=== PATIENT | female | born 1990 | race Caucasian/White ===

== ENCOUNTER 2018-01-25 09:39 | Emergency (ER) | payer OTHER ==
--- NOTE | 2018-01-25 12:00 | EDPHY ---
H & P Stated Complaint: tachycardia Source: Patient Exam Limitations: No limitations - Personal History LMP (Females 10-55): 1-7 Days Ago Current Tetanus/Diphtheria Vaccine: Yes Current Tetanus Diphtheria and Acellular Pertussis (TDAP): Yes - Medical/Surgical History Hx Asthma: No Hx Chronic Respiratory Disease: No Hx Diabetes: No Hx Cardiac Disease: No Hx Renal Disease: No Hx Cirrhosis: No Hx Alcoholism: No Hx HIV/AIDS: No Hx Splenectomy or Spleen Trauma: No Other PMH: denies - Social History Smoking Status: Never smoked Time Seen by Provider: 01/25/18 11:59 HPI/ROS: HPI: This is a 27-year-old female who presents with Chief Complaint: Tachycardia Location: Heart Quality: Racing Duration: Since Wednesday Signs and Symptoms: no shortness of breath at rest, no shortness of breath on exertion, no cough, no chest pain, no palpitations, no lower extremity edema, no wheezing, no orthopnea, no paroxysmal nocturnal dyspnea, no fever, no injury/ trauma, no hemoptysis, no carpal pedal spasms Timing: Acute, intermittent episodes Severity: Moderate Context: Patient reports that she traveled to [facility] over the weekend and returned on Wednesday. She reports that the day after arriving at the wedding and flying on a plane she started to feel like her heart was racing, dizzy and short of breath. Symptoms were worse at night. She drinks an average of 4 drinks of caffeine daily. Denies any calf pain or swelling. Denies shortness of breath, fever, chest pain. Has a Nexplanon. Nonsmoker. Modifying Factors: None Comment: ROS: A comprehensive 10 system review of systems is otherwise negative aside from elements mentioned in the history of present illness. MEDICAL/SURGICAL/SOCIAL HISTORY: Medical history: Generally healthy. Does not take any regular medications. Surgical history: Denies Social history: Employed. CONSTITUTIONAL: Polite and cooperative, slightly anxious adult white female, awake and alert, no obvious distress HEENT: Atraumatic and normocephalic, PERRL, EOMI. Nares patent; no rhinorrhea; no nasal mucosal edema. Tympanic membranes clear. Oropharynx clear, no exudate and moist pink mucosa. Airway patent. No lymphadenopathy. No meningismus. Cardiovascular: Normal S1/S2, tachycardia, regular rhythm, without murmur rub or gallop. PULMONARY/CHEST: Symmetrical and nontender. Clear to auscultation bilaterally. Good air movement. No accessory muscle usage. ABDOMEN: Soft, nondistended, nontender, no rebound, no guarding, no peritoneal signs, no masses or organomegaly. No CVAT. EXTREMITIES: 2/2 pulses, strength 5/5, no deformities, no clubbing, no cyanosis or edema. Negative calf pain. No Palpable cords in lower extremities. NEUROLOGICAL: no focal neuro deficits. GCS 15. SKIN: Warm and dry, no erythema. no rash. Good capillary refill. (Sara Ulloa) Constitutional: Initial Vital Signs Heart Rate 99 01/25/18 09:59 Respiratory Rate 16 01/25/18 09:59 Blood Pressure 149/96 H 01/25/18 09:59 O2 Sat (%) 99 01/25/18 09:59 O2 Delivery Mode Room Air Allergies/Adverse Reactions: No Known Allergies Allergy (Unverified 01/25/18 09:59) Home Medications: Medication Instructions Recorded Bcp 01/25/18 Medical Decision Making - Diagnostics EKG Interpretation: EKG interpreted by me shows normal sinus rhythm with normal interval and axis. QRS is normal there is no significant ST elevation or depression. Borderline T- wave changes leads V2 and V3. No ectopy. Rate is 92 (Shahram Nunez) ED Course/Re-evaluation: Vital signs reviewed and show heart rate in the upper 90s low 100. No hypoxia, respiratory distress. EKG, laboratory studies, IV fluids, IV medications ordered EKG attending read shows normal sinus rhythm with a rate of 92 beats per minute. No acute ischemic changes, no arrhythmias, no WPW. Given 1 L normal saline and IV Ativan 1 mg. 1215: Notified by tech that troponin is 0.00 1233: Reviewed labs. No signs of leukocytosis/anemia/platelet dysfunction/EVERARDO/ electrolyte imbalance/VTE//thyroid disease. Vital signs improved at discharge. Resolution of tachycardia. Given referral to Cardiology to determine if candidate for Holter monitor. This patient was seen under the supervision of my secondary supervising physician. I evaluated care for this patient independently. Discussed this patient with Dr. Nunez. (Sara Ulloa) I did not see this patient while she was in the emergency department. However her care was discussed with the PA while the patient was in the department. I agree with treatment plan and management (Shahram Nunez) Differential Diagnosis: Palpitation differential includes but is not limited to anxiety, dehydration, anemia, pulmonary embolism, arrhythmias, pericardial effusion. (Sara Ulloa) - Data Points Laboratory Results: Laboratory Results 01/25/18 11:57 01/25/18 11:57 01/25/18 01/25/18 01/25/18 12:02 11:57 11:57 WBC RBC Hgb Hct MCV MCH MCHC RDW Plt Count MPV Neut % (Auto) Lymph % (Auto) [place] % (Auto) Eos % (Auto) Baso % (Auto) Nucleat RBC Rel Count Absolute Neuts (auto) Absolute Lymphs (auto) Absolute Monos (auto) Absolute Eos (auto) Absolute Basos (auto) Absolute Nucleated RBC Immature Gran % Immature Gran # D-Dimer Sodium 141 mEq/L mEq/L (135-145) Potassium 3.8 mEq/L mEq/L (3.3-5.0) Chloride 106 mEq/L mEq/L (97-110) Carbon Dioxide 23 mEq/l mEq/l (22-31) Anion Gap 12 mEq/L mEq/L (6-14) BUN 7 mg/dL mg/dL (7-23) Creatinine 0.6 mg/dL mg/dL (0.6-1.0) Estimated GFR > 60 Glucose 106 mg/dL H mg/dL (70-100) Calcium 10.1 mg/dL mg/dL (8.5-10.4) POC Troponin I 0.00 ng/mL ng/mL (0.00-0.08) TSH 1.520 uIU/mL uIU/mL (0.465-4.680) Beta HCG, Qual NEGATIVE 01/25/18 01/25/18 11:57 11:57 WBC 6.20 10^3/uL 10^3/uL (3.80-9.50) RBC 4.93 10^6/uL 10^6/uL (4.18-5.33) Hgb 15.3 g/dL g/dL (12.6-16.3) Hct 42.9 % % (38.0-47.0) MCV 87.0 fL fL (81.5-99.8) MCH 31.0 pg pg (27.9-34.1) MCHC 35.7 g/dL g/dL (32.4-36.7) RDW 11.4 % L % (11.5-15.2) Plt Count 262 10^3/uL 10^3/uL (150-400) MPV 9.9 fL fL (8.7-11.7) Neut % (Auto) 74.9 % H % (39.3-74.2) Lymph % (Auto) 18.9 % % (15.0-45.0) [place] % (Auto) 5.3 % % (4.5-13.0) Eos % (Auto) 0.2 % L % (0.6-7.6) Baso % (Auto) 0.5 % % (0.3-1.7) Nucleat RBC Rel Count 0.0 % % (0.0-0.2) Absolute Neuts (auto) 4.65 10^3/uL 10^3/uL (1.70-6.50) Absolute Lymphs (auto) 1.17 10^3/uL 10^3/uL (1.00-3.00) Absolute Monos (auto) 0.33 10^3/uL 10^3/uL (0.30-0.80) Absolute Eos (auto) 0.01 10^3/uL L 10^3/uL (0.03-0.40) Absolute Basos (auto) 0.03 10^3/uL 10^3/uL (0.02-0.10) Absolute Nucleated RBC 0.00 10^3/uL 10^3/uL (0-0.01) Immature Gran % 0.2 % % (0.0-1.1) Immature Gran # 0.01 10^3/uL 10^3/uL (0.00-0.10) D-Dimer 0.32 ug/mLFEU ug/mLFEU (0.00-0.50) Sodium Potassium Chloride Carbon Dioxide Anion Gap BUN Creatinine Estimated GFR Glucose Calcium POC Troponin I TSH Beta HCG, Qual Medications Given: Discontinued Medications Sodium Chloride (Ns) 1,000 mls @ 0 mls/hr IV EDNOW ONE; Wide Open PRN Reason: Protocol Stop: 01/25/18 12:12 Last Admin: 01/25/18 12:19 Dose: 1,000 mls Lorazepam (Ativan Injection) 1 mg IVP EDNOW ONE Stop: 01/25/18 12:12 Last Admin: 01/25/18 12:19 Dose: 1 mg Point of Care Test Results: Chemistry 01/25/18 12:02 POC Troponin I 0.00 ng/mL ng/mL (0.00-0.08) Departure - Departure Disposition: Home, Routine, Self-Care Clinical Impression: Heart palpitations, Sinus tachycardia Condition: Good Instructions: Heart Palpitations (ED), Holter Monitoring (ED), Tachycardia (ED) Additional Instructions: Consume a minimum of 8-10 glasses of water or electrolyte fluid replacement drinks that include Gatorade, Powerade, Pedialyte. Refrain from eating or drinking any caffeine. Follow-up with Cardiology in the next 7-10 days to discuss tachycardia and palpitations and determine if Holter monitoring is needed. Referrals: Rose Cano MD [Medical Doctor] - As per Instructions Stand Alone Forms: Work Excuse
[2018-01-25 12:05] LABS: PLATELET COUNT 262 10^3/uL (150-400)
[2018-01-25] MEDS ORDERED: LORazepam 2 MG/ML INJ IVP ONE (12:11)
[2018-01-25] MEDS ORDERED: NS 1,000 ML IV ONE (12:11)
[2018-01-25 12:58] VITALS: BP 129/86
--- NOTE | 2018-01-25 14:02 | CPEKG ---
Test Reason : OPEN Blood Pressure : / mmHG Vent. Rate : 092 BPM Atrial Rate : 091 BPM P-R Int : 170 ms QRS Dur : 089 ms QT Int : 363 ms P-R-T Axes : 081 026 035 degrees QTc Int : 450 ms Sinus rhythm Borderline T abnormalities, anterior leads Confirmed by Shahram Nunez ([id number]) on 01/25/2018 2:02:12 PM Referred By: Confirmed By:Shahram Nunez
== END 2018-01-25 13:12 | disposition home or self-care (01) ==
DX: R00.0 Tachycardia, unspecified (principal); R00.2 Palpitations; E86.9 Volume depletion, unspecified
CPT/HCPCS: 84484-PO; 96374; J2060